=== PATIENT | female | born 1965 | race Caucasian/White ===

== ENCOUNTER → 2020-04-19 | Outpatient (CLI) | payer OTHER ==
[2020-04-19 09:38] LABS: RBC (AUTOMATED) 300 10^6 (0)
[2020-04-19 09:40] LABS: RBC (AUTOMATED) 200 10^6 (0)
[2020-04-19 11:47] LABS: GLUCOSE,CSF 75 mg/dL (50-80); TOTAL PROTEIN,CSF 64 mg/dL (20-45)
[2020-04-22 17:10] LABS: MYELIN BASIC PROTEIN, CSF 3.9 ng/mL (0.0-3.7)
[2020-04-23 14:14] LABS: CSF IGG INDEX 0.6 (0.0-0.7); CSF/SERUM ALB. INDEX 8 (0-8); IMMUNOGLOBULIN G, QN, SERUM 827 mg/dL (586-1602)
[2020-07-09 09:56] LABS: WBC (AUTOMATED 5 10^3 (0-5)
[2020-07-09 09:58] LABS: WBC (AUTOMATED 4 10^3 (0-5)
== END ==
LOC: RAD 07:10
PROVIDERS: Nurse Practitioner Family
DX: G35 Multiple sclerosis (principal); H53.9 Unspecified visual disturbance
CPT/HCPCS: 82040; 82784; 82945; 83873; 83916; 84157; 87015; 87070; 87116; 87205; 87210; 89051